=== PATIENT | female | born 1975 | race Two or more races ===

== ENCOUNTER → 2017-05-24 | Emergency (ER) | payer SELFPAY ==
[~2017-05-24] VITALS: Ht 154.9 cm; Wt 94.8 kg
[2017-05-24 15:46] VITALS: BP 132/90
--- NOTE | 2017-05-24 22:12 | Emergency Room Report ---
History of Present Illness General Chief Complaint: Dizziness Source: Patient, EMS Present Illness HPI Patient left without being seen. Allergies: Coded Allergies: No Known Allergies (Unverified , 05/24/17) Patient History Past Medical History: see triage record Last Menstrual Period: 05/01/17 Reviewed Nursing Documentation: PMH: Agreed; PSxH: Agreed Nursing Documentation-PMH Past Medical History: No Stated History Review of Systems All Other Systems: negative except mentioned in HPI Physical Exam Vital Signs Date Time Temp Pulse Resp B/P (MAP) Pulse Ox O2 Delivery O2 Flow Rate FiO2 05/24/17 15:46 98.1 70 18 132/90 99 Room Air 98.1 Medical Decision Making PA Attestation Dr. Moreland is my supervising Physician whom patient management has been discussed with. Diagnostic Impression: Primary Impression: Patient left without being seen ER Course Patient left without being seen. Last Vital Signs Date Time Temp Pulse Resp B/P (MAP) Pulse Ox O2 Delivery O2 Flow Rate FiO2 05/24/17 15:46 98.1 70 18 132/90 99 Room Air 98.1 Disposition: LEFT W/OUT BEING SEEN Scripts No Active Prescriptions or Reported Meds Referrals: NOT CHOSEN IPA/,REFERRING (PCP) Vic Mariano May 24, 2017 22:12
== END | disposition left against medical advice (07) ==
LOC: EDBD 15:49 → EMR 16:05
DX: R42 Dizziness and giddiness (principal); Z53.21 Procedure and treatment not carried out due to patient leaving prior to being seen by health care provider
CPT/HCPCS: 99281